=== PATIENT | female | born 1990 | race Caucasian/White ===

== ENCOUNTER 2019-03-22 18:24 | Emergency (ER) | payer MEDICAID ==
[2019-03-22] MEDS ORDERED: HYDROmorphone 1 MG/ML Syringe IM ONE (19:28)
--- NOTE | 2019-03-22 19:32 | EDM.PDOC ---
ED HPI GENERAL MEDICAL PROBLEM - General Chief Complaint: Skin Complaint Stated Complaint: LUMP IN GROIN AREA Time Seen by Provider: 03/22/19 18:42 Source of Information: Reports: Patient, RN Notes Reviewed History Limitations: Reports: No Limitations - History of Present Illness INITIAL COMMENTS - FREE TEXT/NARRATIVE: Patient is a 28-year-old female who presents to the ED for the evaluation of a painful lump in the left groin. The patient notes this has been present for about 2 weeks now. She states that the pain has been increasing. She also feels as if there is pressure to the area. The patient states that the pain worsens with any sort of increase in abdominal pressure where she is squatting down, or if she coughs. The patient notes she was at the doctor that prescribes her psychiatric medications and they thought she could have a possibly inflamed lymph node. The patient became mildly worried about this and comes to the ER for evaluation. The patient states she is not really consistent with her bowel movements either, she has had some constipation for the past 1-1/2 weeks. She is not sure she be . She states she also thinks she has a yeast infection, and she notes that she is on some antibiotics for some abscess teeth for which she is seeing an oral surgeon in 3 weeks. She denies any sort of foul orders coming from her vagina but does note some discharge. She is unsure as to whether or not she can actually have an STD as well. Left Groin Pain Score (Numeric/FACES): 4 - Related Data Allergies Allergy/AdvReac Type Severity Reaction Status Date / Time No Known Allergies Allergy Verified 03/22/19 18:39 Home Meds: Home Meds Buprenorphine [Subutex] 16 mg SL DAILY 03/22/19 [History] Dextroamphetamine/Amphetamine [Adderall] 60 mg PO BID 03/22/19 [History] Past Medical History HEENT History: Reports: Other (See Below) Other HEENT History: Dental Caries Cardiovascular History: Reports: None Respiratory History: Reports: None Gastrointestinal History: Reports: None LACE WINDER History: Reports: None Musculoskeletal History: Reports: None Neurological History: Reports: None Psychiatric History: Reports: ADD, Addiction Endocrine/Metabolic History: Reports: None Hematologic History: Reports: None Immunologic History: Reports: None Oncologic (Cancer) History: Reports: None Dermatologic History: Reports: None - Infectious Disease History Infectious Disease History: Reports: None - Past Surgical History Head Surgeries/Procedures: Reports: None Female Surgical History: Reports: D&C Social & Family History - Tobacco Use Smoking Status *Q: Current Every Day Smoker Years of Tobacco use: 15 Packs/Tins Daily: 0.5 - Caffeine Use Caffeine Use: Reports: None - Recreational Drug Use Recreational Drug Use: No ED ROS GENERAL - Review of Systems Review Of Systems: See Below Constitutional: Reports: No Symptoms HEENT: Reports: No Symptoms Respiratory: Denies: Shortness of Breath Cardiovascular: Denies: Chest Pain Endocrine: Reports: No Symptoms GI/Abdominal: Reports: Constipation, Nausea. Denies: Diarrhea, Vomiting : Reports: Discharge. Denies: Dysuria, Frequency, Urgency Musculoskeletal: Reports: No Symptoms Skin: Reports: Lumps (Left inguinal region) Neurological: Reports: No Symptoms Psychiatric: Reports: No Symptoms Hematologic/Lymphatic: Reports: No Symptoms Immunologic: Reports: No Symptoms ED EXAM, SKIN/RASH Exam: See Below Exam Limited By: No Limitations General Appearance: Alert, WD/WN, No Apparent Distress Eye Exam: Bilateral Eye: EOMI, Normal Inspection, PERRL Respiratory/Chest: No Respiratory Distress, Lungs Clear, Normal Breath Sounds, No Accessory Muscle Use, Chest Non-Tender Cardiovascular: Normal Peripheral Pulses, Regular Rate, Rhythm, No Murmur Peripheral Pulses: 3+: Radial (L), Radial (R), Dorsalis Pedis (L), Dorsalis Pedis (R) GI/Abdominal: Normal Bowel Sounds, Soft, No Distention, No Mass, Tender (lower abdomen tenderness to palpation) (Female) Exam: Deferred (Vaginal swab was obtained per patient after instructions given) Extremities: Normal Inspection, Normal Capillary Refill Neurological: Alert, Oriented, Normal Cognition, No Motor/Sensory Deficits Psychiatric: Normal Affect, Normal Mood Skin: Warm, Dry, Intact, Normal Color, No Rash Location, Skin: Groin (Left inguinal area, this is roughly 3cm x 4 cm) Associated features: No: Warmth Lymphatic: Adenopathy (3cm area in question in Left groin, enlarged lymph node vs femoral hernia.) Course - Vital Signs Last Recorded V/S: Last Vital Signs Temp 98.2 F 03/22/19 18:34 Pulse 93 03/22/19 18:34 Resp 16 03/22/19 18:34 BP 133/81 03/22/19 18:34 Pulse Ox 100 03/22/19 18:34 - Orders/Labs/Meds Labs: Laboratory Tests 03/22/19 03/22/19 03/22/19 Range/Units 19:20 19:20 19:20 WBC 6.07 (3.98-10.04) K/mm3 RBC 4.41 (3.98-5.22) M/mm3 Hgb 12.7 (11.2-15.7) gm/L Hct 36.8 (34.1-44.9) % MCV 83.4 (79.4-94.8) fl MCH 28.8 (25.6-32.2) pg MCHC 34.5 (32.2-35.5) g/dl RDW Std Deviation 36.0 L (36.4-46.3) fL Plt Count 269 (182-369) K/mm3 MPV 8.7 L (9.4-12.3) fl Neutrophils % (Manual) 62 H (40-60) % Band Neutrophils % 0 (0-10) % Lymphocytes % (Manual) 22 (20-40) % Atypical Lymphs % 0 % Monocytes % (Manual) 4 (2-10) % Eosinophils % (Manual) 11 H (0.7-5.8) % Basophils % (Manual) 1 (0.1-1.2) Toxic Granulation Few Platelet Estimate Adequate Plt Morphology Comment Normal RBC Morph Comment Normal Sodium 142 (136-145) mEq/L Potassium 4.0 (3.5-5.1) mEq/L Chloride 106 (98-107) mEq/L Carbon Dioxide 31 (21-32) mEq/L Anion Gap 9.0 (5-15) BUN 14 (7-18) mg/dL Creatinine 0.8 (0.55-1.02) mg/dL Est Cr Clr Drug Dosing 89.96 mL/min Estimated GFR (MDRD) > 60 (>60) mL/min BUN/Creatinine Ratio 17.5 (14-18) Glucose 105 (74-106) mg/dL Calcium 9.0 (8.5-10.1) mg/dL Total Bilirubin 0.3 (0.2-1.0) mg/dL AST 17 (15-37) U/L ALT 31 (14-59) U/L Alkaline Phosphatase 78 (46-116) U/L C-Reactive Protein 0.5 (<1.0) mg/dL Total Protein 7.5 (6.4-8.2) g/dl Albumin 3.6 (3.4-5.0) g/dl Globulin 3.9 gm/dL Albumin/Globulin Ratio 0.9 L (1-2) HCG, Qual Negative (NEGATIVE) Urine Color (Yellow) Urine Appearance (Clear) Urine pH (5.0-8.0) Ur Specific [place] (1.005-1.030) Urine Protein (Negative) Urine Glucose (UA) (Negative) Urine Ketones (Negative) Urine Occult Blood (Negative) Urine Nitrite (Negative) Urine Bilirubin (Negative) Urine Urobilinogen (0.2-1.0) Ur Leukocyte Esterase (Negative) Urine RBC (0-5) /hpf Urine WBC (0-5) /hpf Ur Epithelial Cells (0-5) /hpf Urine Bacteria (FEW) /hpf Urine Mucus (FEW) /hpf C trachomatis DNA (PCR) N gonorrhoeae DNA (PCR) 03/22/19 03/22/19 Range/Units 20:00 20:00 WBC (3.98-10.04) K/mm3 RBC (3.98-5.22) M/mm3 Hgb (11.2-15.7) gm/L Hct (34.1-44.9) % MCV (79.4-94.8) fl MCH (25.6-32.2) pg MCHC (32.2-35.5) g/dl RDW Std Deviation (36.4-46.3) fL Plt Count (182-369) K/mm3 MPV (9.4-12.3) fl Neutrophils % (Manual) (40-60) % Band Neutrophils % (0-10) % Lymphocytes % (Manual) (20-40) % Atypical Lymphs % % Monocytes % (Manual) (2-10) % Eosinophils % (Manual) (0.7-5.8) % Basophils % (Manual) (0.1-1.2) Toxic Granulation Platelet Estimate Plt Morphology Comment RBC Morph Comment Sodium (136-145) mEq/L Potassium (3.5-5.1) mEq/L Chloride (98-107) mEq/L Carbon Dioxide (21-32) mEq/L Anion Gap (5-15) BUN (7-18) mg/dL Creatinine (0.55-1.02) mg/dL Est Cr Clr Drug Dosing mL/min Estimated GFR (MDRD) (>60) mL/min BUN/Creatinine Ratio (14-18) Glucose (74-106) mg/dL Calcium (8.5-10.1) mg/dL Total Bilirubin (0.2-1.0) mg/dL AST (15-37) U/L ALT (14-59) U/L Alkaline Phosphatase (46-116) U/L C-Reactive Protein (<1.0) mg/dL Total Protein (6.4-8.2) g/dl Albumin (3.4-5.0) g/dl Globulin gm/dL Albumin/Globulin Ratio (1-2) HCG, Qual (NEGATIVE) Urine Color Yellow (Yellow) Urine Appearance Clear (Clear) Urine pH 7.0 (5.0-8.0) Ur Specific [place] 1.020 (1.005-1.030) Urine Protein Trace H (Negative) Urine Glucose (UA) Negative (Negative) Urine Ketones Negative (Negative) Urine Occult Blood Negative (Negative) Urine Nitrite Negative (Negative) Urine Bilirubin Negative (Negative) Urine Urobilinogen 1.0 (0.2-1.0) Ur Leukocyte Esterase Negative (Negative) Urine RBC Not seen (0-5) /hpf Urine WBC 0-5 (0-5) /hpf Ur Epithelial Cells 0-5 (0-5) /hpf Urine Bacteria Not seen (FEW) /hpf Urine Mucus Moderate H (FEW) /hpf C trachomatis DNA (PCR) Not detected N gonorrhoeae DNA (PCR) Not detected Meds: Medications Discontinued Medications Generic Name Dose Route Start Last Admin Trade Name Freq PRN Reason Stop Dose Admin Azithromycin 1,000 mg 03/22/19 21:03 03/22/19 21:19 Zithromax PO 03/22/19 21:04 1,000 mg ONETIME ONE Administration Ceftriaxone Sodium 250 mg/ 0 mg 03/22/19 21:03 03/22/19 21:19 Lidocaine HCl 0.5 ml IM 03/22/19 21:04 250 syringe ONETIME ONE Administration Hydromorphone HCl 1 mg 03/22/19 19:28 03/22/19 19:55 Dilaudid IM 03/22/19 19:29 1 mg ONETIME ONE Administration Metronidazole 500 mg 03/22/19 20:35 03/22/19 20:51 Flagyl PO 03/22/19 20:36 500 mg ONETIME ONE Administration - Re-Assessments/Exams Free Text/Narrative Re-Assessment/Exam: 03/22/19 19:36 Patient presents to the ED for the evaluation of these painful lump in her left groin. Did order a CBC, CMP, CRP, urinalysis w/ a dirty catch and a clean catch for GC and other infectious evaluation, a wet prep and an ultrasound of the area to differentiate if this is a lymph node versus hernia in nature. 03/22/19 20:15 Ultrasound is done and demonstrates 3 abnormal lymph nodes within the left groin that are hypoechoic with edematous change as well as being hypervascular. These measure 3.3 cm, 1.7 cm, and 1.4 cm. The lymph nodes are most likely inflammatory in etiology. 03/22/19 21:06 Patient was reassessed at bedside, her vaginal swab did have some clue cells in it which would suggest that she has bacterial vaginosis. I will prophylactically treat her as if she has a gonorrhea chlamydia infection, and she does not want to wait for the results. I will call her when the results are back tonight. 03/22/19 22:22 Results are back for the GC tests and they are negative. I have called the patient and made her aware of the results. Departure - Departure Time of Disposition: 21:07 Disposition: Home, Self-Care 01 Condition: Fair Clinical Impression: Inguinal lymphadenopathy, Bacterial vaginosis - Discharge Information *PRESCRIPTION DRUG MONITORING PROGRAM REVIEWED*: No *COPY OF PRESCRIPTION DRUG MONITORING REPORT IN PATIENT EMILEE: No Instructions: Lymphadenopathy, Bacterial Vaginosis, [id number] Referrals: PCP,None [Primary Care Provider] - Forms: ED Department Discharge Additional Instructions: You were evaluated in the ED today for your painful left groin lump. This demonstrated 3 mildly inflamed lymph nodes which could suggest an infection in this area. Your laboratory evaluation was within normal limits, your white blood cell count was not elevated, and your marker for inflammation was also not elevated. Your vaginal swab did demonstrate some cells that are suspicious for bacterial vaginosis, you have been given a dose of Flagyl in the ER tonight, and will be provided with a prescription for continuation of this. This will be electronically sent to the [facility] pharmacy located by [facility]. Please try to refrain from alcohol use while taking Flagyl as it can make you quite nauseous and feel very ill. You were also prophylactically treated for a gonorrhea/chlamydia infection. Your test results have not been resulted at your departure, you will be called and made notified of the results whether it is positive or negative. If it is positive, recommend that you refrain from sexual intercourse for 7 days , and go to a community clinic like [facility] or [facility] for free STD testing for repeat testing. Recommend that you follow up in clinic if the lump is not decreasing in size in a timely fashion, roughly 1 week's time. You may take 600 mg ibuprofen every 6 hours as needed for further pain relief. Please return to the ED if your symptoms change or worsen.
--- NOTE | 2019-03-22 20:03 | US ---
Left inguinal ultrasound: Multiple real-time images of the left inguinal region were obtained. Findings: 3 abnormal lymph nodes are seen within the left inguinal region which are hypoechoic compatible with edematous change as well as being slightly hypervascular. These lymph nodes measure 3.3 cm, 1.7 cm, and 1.4 cm. Impression: 1. 3 abnormal lymph nodes within the left groin as described above. These lymph nodes are most likely inflammatory in etiology. Please follow-up clinically to make sure they decrease in size as expected. 2. No hernia is identified. Diagnostic code #3
[2019-03-22] MEDS ORDERED: metroNIDAZOLE 500 MG Tab PO ONE (20:35)
[2019-03-22] MEDS ORDERED: Azithromycin 250 MG Tab PO ONE (21:03)
[2019-03-22] MEDS ORDERED: cefTRIAXone 250 MG, Lidocaine 1% 0.5 ML IM ONE ×2 (21:03)
[2019-03-22 22:13] LABS: C. TRACHOMATIS BY PCR NOT DETECTED; N. GONORRHOEAE BY PCR NOT DETECTED
== END 2019-03-22 21:25 | disposition home or self-care (01) ==
LOC: JD.ED 18:24
DX: N76.0 Acute vaginitis (principal); R59.0 Localized enlarged lymph nodes; F17.210 Nicotine dependence, cigarettes, uncomplicated
CPT/HCPCS: 36415; 76881; 80053; 81001; 84703; 85007; 85027; 86140; 87210; 87491; 87591; 87808; 96372; 99284; A9270; J0696; J1170; J2001

== ENCOUNTER 2019-05-17 17:52 | Emergency (ER) | payer SELFPAY ==
[2019-05-17] MEDS ORDERED: Ibuprofen 600 MG Tab PO ONE (19:41)
[2019-05-17] MEDS ORDERED: Orphenadrine 100 MG Tab.ER PO STA (19:41)
--- NOTE | 2019-05-17 19:47 | EDM.PDOC ---
ED HPI GENERAL MEDICAL PROBLEM - General Chief Complaint: Chest Pain Stated Complaint: CHEST PAIN Time Seen by Provider: 05/17/19 18:54 Source of Information: Reports: Patient History Limitations: Reports: No Limitations - History of Present Illness INITIAL COMMENTS - FREE TEXT/NARRATIVE: Ms. Land is a very pleasant 28 year old woman who states that she has had a chest cold for the past 3 days, including chest congestion and a cough productive of brownish sputum. She has not had a fever, but she has been perspiring. She states that she woke this morning with left anterior chest pain. It is dull in character. It is always present, but made worse with inspiration. She denies dyspnea at rest, but she has had dyspnea on exertion since this morning. The patient also reports 3 days of a headache, felt as a sharp pain in her left forehead. No recent sore throat. No recent nausea, vomiting, watery diarrhea, or urinary symptoms. She reports chronic constipation. The patient has not taken any eggt-nro-tejakyj or home remedies to treat her symptoms. The patient is also concerned about having chlamydia, because her ex-boyfriend told her that he has it. The patient does not have a PCP. Her Partnership Manager is Dr. Owen Patrick. She has not received an influenza vaccine this season. Left Chest Pain Score (Numeric/FACES): 7 - Related Data Allergies Allergy/AdvReac Type Severity Reaction Status Date / Time No Known Allergies Allergy Verified 05/17/19 18:00 Home Meds: Home Meds Buprenorphine [Subutex] 16 mg SL DAILY 03/22/19 [History] Dextroamphetamine/Amphetamine [Adderall] 60 mg PO BID 03/22/19 [History] Orphenadrine [Norflex] 1 tab PO Q12H PRN #14 tab.er 05/17/19 [Rx] Past Medical History HEENT History: Reports: Other (See Below) Other HEENT History: Dental Caries Psychiatric History: Reports: ADD, Addiction (opioids) - Past Surgical History Female Surgical History: Reports: D&C (x 1), Other (See Below) (Therapeutic x 1) Social & Family History - Tobacco Use Smoking Status *Q: Current Every Day Smoker Years of Tobacco use: 20 Packs/Tins Daily: 0.5 Packs/Tins Daily Comment: Down from 1.5 ppd - Caffeine Use Caffeine Use: Reports: Tea - Alcohol Use Alcohol Use History: No - Recreational Drug Use Recreational Drug Use: Yes Drug Use in Last 12 Months: Yes Recreational Drug Type: Reports: Marijuana/Hashish (smokes regularly), Other ( see below) (Opioids - developed dependency to Vicodin Rx'd for dental pain, and when that became unavailable, 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 Now on Subtex.) - Living Situation & Occupation Living situation: Reports: Single, with Family (2 kids) Occupation: Unemployed ED ROS GENERAL - Review of Systems Review Of Systems: ROS reveals no pertinent complaints other than HPI. ED EXAM, GENERAL - Physical Exam Exam: See Below Exam Limited By: No Limitations General Appearance: Alert, WD/WN, No Apparent Distress Eye Exam: Bilateral Eye: EOMI, Normal Inspection Ears: Normal External Exam, Normal Canal, Hearing Grossly Normal, Normal TMs Nose: Normal Inspection, Normal Mucosa, No Blood Throat/Mouth: Normal Inspection, Normal Lips, Normal Teeth, Normal Gums, Normal Oropharynx, Normal Voice, No Airway Compromise Head: Atraumatic, Normocephalic Neck: Normal Inspection, Supple, Non-Tender, Full Range of Motion. No: Lymphadenopathy (L), Lymphadenopathy (R) Respiratory/Chest: No Respiratory Distress, Lungs Clear, Normal Breath Sounds, No Accessory Muscle Use, Other (Reproducible tenderness to palpation of the left anterior chest). No: Decreased Breath Sounds, Crackles, Rhonchi, Wheezing , Stridor, Prolonged Expiration Cardiovascular: Normal Peripheral Pulses, Regular Rate, Rhythm, No Edema, No Gallop, No JVD, No Murmur, No Rub Peripheral Pulses: 4+: Radial (L), Radial (R) GI/Abdominal: Normal Bowel Sounds, Soft, Non-Tender, No Organomegaly, No Distention, No Abnormal Bruit, No Mass (Female) Exam: Deferred Rectal (Female) Exam: Deferred Back Exam: Normal Inspection, Full Range of Motion, NT Extremities: Normal Inspection, Normal Range of Motion, No Pedal Edema, Normal Capillary Refill Neurological: Alert, Oriented, Normal Cognition, No Motor/Sensory Deficits Psychiatric: Normal Affect Skin Exam: Warm, Dry, Intact, Normal Color, No Rash Course - Vital Signs Last Recorded V/S: Last Vital Signs Temp 36.8 C 05/17/19 17:57 Pulse 101 H 10/22/19 17:57 Resp 16 05/17/19 17:57 BP 141/90 H 05/17/19 17:57 Pulse Ox 100 05/17/19 17:57 - Orders/Labs/Meds Labs: Laboratory Tests 05/17/19 Range/Units 20:20 C trachomatis DNA (PCR) Detected H N gonorrhoeae DNA (PCR) Not detected Meds: Medications Discontinued Medications Generic Name Dose Route Start Last Admin Trade Name Belkys PRN Reason Stop Dose Admin Azithromycin 1,000 mg 05/17/19 22:49 05/17/19 23:22 Zithromax PO 05/17/19 22:50 1,000 mg ONETIME STA Administration Ceftriaxone Sodium 250 mg 05/17/19 22:49 05/17/19 23:22 Rocephin IM 05/17/19 22:50 250 mg ONETIME STA Administration Ibuprofen 600 mg 05/17/19 19:41 05/17/19 20:11 Motrin PO 05/17/19 19:42 600 mg ONETIME ONE Administration Influenza Virus Vaccine 1 each 05/17/19 19:41 Pharmacy To Dose - Influenza Vaccine IM 05/17/19 19:42 ONETIME ONE Influenza Virus Vaccine 60 mcg 05/17/19 20:00 05/17/19 20:11 Fluzone Quad [id number] Syringe IM 05/17/19 20:01 60 mcg .ONCE ONE Administration Orphenadrine Citrate 100 mg 05/17/19 19:41 05/17/19 20:11 Norflex PO 05/17/19 19:42 100 mg ONETIME STA Administration - Re-Assessments/Exams Free Text/Narrative Re-Assessment/Exam: 05/17/19 19:42 By history, the patient has a viral URI with a cough. Her physical exam is benign, including her lungs, which are entirely clear to auscultation bilaterally. Since there is no history of a fever, and she is afebrile here, I don't clinically suspect influenza. The triage nurse ordered a two-view chest x- ray, which I have reviewed: 2-view chest radiograph appears to be grossly normal. The cardiac silhouette is within normal limits. No pulmonary vascular congestion. No pleural effusions. No focal infiltrate. No pneumothorax. Formal read per the Radiologist pending. I advised the patient that there are no medicines we can give her to get rid of a common cold, and that it will have to run its course. The patient is satisfied with that. With respect to the patient's left-sided chest pain, her physical exam suggests that it is musculoskeletal in etiology, likely because of intercostal muscle spasm related to her coughing. The patient will be started on Norflex and ibuprofen, and I will prescribe a 7-day course of Norflex. With respect to the patient's concern of having chlamydia due to her former boyfriend telling her that he had it, I think it is appropriate to check. The patient will provide a dirty urine sample for a GC/chlamydia, and I will call her if it returns positive. The patient agreed to receive an influenza vaccine prior to discharge. I will refer her to Dr. Pereira for follow-up. 05/17/19 22:46 The patient's chlamydia by PCR has returned positive. The gonorrhea by PCR is negative. I will contact the patient to have her return to the ED for treatment. 05/17/19 22:48 I was able to reach the patient by telephone. She will return to the ED now. When she gets here, we will treat her with 1 g of oral azithromycin and 250 mg of IM Rocephin. 05/17/19 23:46 The patient return to the ED and received 1 g of oral azithromycin and 250 mg of IM Rocephin. I advised her to contact her former boyfriend to recommend that he be evaluated and treated, along with anyone else that he may have been with. Departure - Departure Time of Disposition: 19:47 Disposition: Home, Self-Care 01 Condition: Good Clinical Impression: Viral URI with cough, Intercostal muscle pain - Discharge Information *PRESCRIPTION DRUG MONITORING PROGRAM REVIEWED*: Not Applicable *COPY OF PRESCRIPTION DRUG MONITORING REPORT IN PATIENT EMILEE: Not Applicable Prescriptions: Orphenadrine [Norflex] 1 tab PO Q12H PRN #14 tab.er PRN Reason: Muscle Spasm Instructions: Upper Respiratory Infection, Adult, Danc-[id number], Musculoskeletal Pain Referrals: Karina Pereira MD [Physician] - Forms: ED Department Discharge Additional Instructions: You were seen in the emergency room for left-sided chest pain following 3 days of coughing. You were also concerned about chlamydia. Workup in the ER included a chest x-ray and a GC/Chlamydia test by PCR. Your chest x-ray returned completely normal. You do not have pneumonia. The GC/Chlamydia test takes about 2 hours to complete. You will be notified if it returns positive. Based on your history, physical exam, and chest x-ray results, you are most likely suffering from a viral URI, also known as a common cold. Unfortunately, there are no medicines to treat a common cold - it will have to run its course. We do not recommend that you take [id number] cough or cold remedies, as they have been shown to be of no benefit, but do have side effects Your left chest pain is felt to be due to strain of the muscles in between your ribs. You have been started on the muscle relaxant Norflex. A prescription for Norflex has been sent to the [facility], located in the [employer] store. Take one tablet of Norflex every 12 hours, starting tomorrow morning, 05/18/2019, as prescribed. In addition to Norflex, we recommend that you take [id number] ibuprofen, 2 -3 tablets (400-600 mg) every 8 hours, with food, as needed for discomfort. Follow-up with Dr. Karina Pereira in the clinic, as needed. If any other problems, please do not hesitate to return to the ER. *You receive an influenza vaccine during your ER visit.*
[2019-05-17] MEDS ORDERED: FLU Vacc QS2019-20(6MOS+)/PF 60 MCG/0.5 ML SYRINGE IM ONE (20:00)
[2019-05-17 22:21] LABS: C. TRACHOMATIS BY PCR DETECTED; N. GONORRHOEAE BY PCR NOT DETECTED
[2019-05-17] MEDS ORDERED: Azithromycin 250 MG Tab PO STA (22:49)
[2019-05-17] MEDS ORDERED: cefTRIAXone 250 MG Vial IM STA (22:49)
--- NOTE | 2019-05-19 09:51 | CR ---
Chest: Two views of the chest were obtained. Comparison: No prior chest x-ray. Heart size and mediastinum are normal. Small focal parenchymal density is seen anteriorly on the lateral view. Lungs otherwise are clear. Bony structures are unremarkable. Impression: 1. Small parenchymal density anteriorly within the mid lung noted on the lateral view. Small area of pneumonia is possible. 2. Chest x-ray is otherwise unremarkable. Diagnostic code #3
== END 2019-05-17 20:20 | disposition home or self-care (01) ==
LOC: JD.ED 17:52
DX: J06.9 Acute upper respiratory infection, unspecified (principal); R07.82 Intercostal pain; F98.8 Other specified behavioral and emotional disorders with onset usually occurring in childhood and adolescence; F17.210 Nicotine dependence, cigarettes, uncomplicated; Z20.2 Contact with and (suspected) exposure to infections with a predominantly sexual mode of transmission; Z23 Encounter for immunization; Z79.899 Other long term (current) drug therapy
CPT/HCPCS: 71046; 87491; 87591; 90471; 90686; 99285; A9270; J0696; 99283; G0008

== ENCOUNTER 2019-08-05 17:29 | Emergency (ER) | payer MEDICAID ==
[2019-08-05] MEDS ORDERED: Sodium Chloride 0.9% 10 ML Syringe FLUSH PRN (17:46)
--- NOTE | 2019-08-05 18:09 | EDM.PDOC ---
ED HPI GENERAL MEDICAL PROBLEM - General Chief Complaint: TRUMPET PLAYER Problem Stated Complaint: 8 WEEKS PREG POSSIBLE MISCARRIAGE Time Seen by Provider: 08/05/19 17:45 Source of Information: Reports: Patient, RN Notes Reviewed History Limitations: Reports: No Limitations - History of Present Illness INITIAL COMMENTS - FREE TEXT/NARRATIVE: Patient is a 29-year-old female who presents to the ED for a possible miscarriage. Patient notes she thinks she is around 8 weeks . Her last menstrual period was normal in May, and she had mild amount of spotting in June. Patient states that she took 2 home test this last week that were positive. She notes that last night and through this morning, she had some lower abdominal pelvic/cramping, very mild spotting. She denies any sort of fever or chills, she states that she has been having nausea, she thought she had stomach flu, but after she took a test she now knows that this is probably morning sickness. She states she does not have a regular TRUMPET PLAYER, but our records indicate that she has been seen by Dr. Jeffries in the [facility]. She is a G5, , she states that she has had an elective and one spontaneous . Patient states that a few months back, she did test positive for chlamydia and syphilis as well, however she states she was treated, and was compliant with treatment. She notes that she is not having any dysuria, but she is having some discharge, that is not foul-smelling. Patient notes that she is a recent IV meth user, her last use was last week. Right Abdomen Pain Score (Numeric/FACES): 8 - Related Data Allergies Allergy/AdvReac Type Severity Reaction Status Date / Time sulfamethoxazole Allergy Vomiting Verified 08/05/19 17:44 [From Bactrim] trimethoprim [From Bactrim] Allergy Vomiting Verified 08/05/19 17:44 Home Meds: Home Meds Buprenorphine [Subutex] 16 mg SL DAILY 03/22/19 [History] Dextroamphetamine/Amphetamine [Adderall] 60 mg PO BID 03/22/19 [History] Pnv No.95/Ferrous Fum/Folic AC [ Caplet] 1 each PO DAILY #30 tablet 05/15 [Rx] Past Medical History HEENT History: Reports: Other (See Below) Other HEENT History: Dental Caries TRUMPET PLAYER History: Reports: , Spontaneous (1), Therapeutic (1) : 5 Para: 2 (A2) Psychiatric History: Reports: ADD, Addiction - Infectious Disease History Infectious Disease History: Reports: 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), Other ( See Below) (syphilis positive but treated 05/26/19, gonorrhea/chlamydia, last positive Apr 2019, has been treated, was negative 06/16/19.) - Past Surgical History Female Surgical History: Reports: D&C Social & Family History - Family History Family Medical History: Noncontributory - Tobacco Use Smoking Status *Q: Current Every Day Smoker Years of Tobacco use: 15 Packs/Tins Daily: 1 - Caffeine Use Caffeine Use: Reports: None - Recreational Drug Use Recreational Drug Use: Yes Drug Use in Last 12 Months: Yes Recreational Drug Type: Reports: Methamphetamine (last use 1st week Jul 2019) Recreational Drug Route: Reports: Intravenous - Living Situation & Occupation Living situation: Reports: Single, with Family (2 kids) Occupation: Unemployed ED ROS GENERAL - Review of Systems Review Of Systems: See Below Constitutional: Denies: Fever, Chills Respiratory: Denies: Shortness of Breath Cardiovascular: Denies: Chest Pain GI/Abdominal: Reports: Abdominal Pain (low abd/pelvic cramping), Nausea. Denies : Diarrhea, Vomiting : Reports: Discharge, Other (mild vaginal spotting). Denies: Dysuria, Frequency, Urgency ED EXAM - Physical Exam Exam: See Below Exam Limited By: No Limitations General Appearance: Alert, WD/WN, No Apparent Distress Respiratory/Chest: No Respiratory Distress, Lungs Clear, Normal Breath Sounds, No Accessory Muscle Use, Chest Non-Tender Cardiovascular: Normal Peripheral Pulses, Regular Rate, Rhythm, No Murmur GI/Abdominal Exam: Normal Bowel Sounds, Soft, Non-Tender, No Distention, No Mass Heart Tones: Not [place] Movement: Not Appreciated Extremities: Normal Inspection, Normal Capillary Refill Neurological: Alert, Oriented, Normal Cognition, No Motor/Sensory Deficits Psychiatric: Normal Affect, Normal Mood Skin Exam: Warm, Dry, Intact, Normal Color, No Rash Course - Vital Signs Last Recorded V/S: Last Vital Signs Temp 99.8 F 08/05/19 17:38 Pulse 130 H 08/05/19 17:38 Resp 16 08/05/19 17:38 BP 126/76 08/05/19 17:38 Pulse Ox 100 08/05/19 17:38 - Orders/Labs/Meds Orders: Active Orders 24 hr Category Date Time Status Peripheral IV Care [RC] . DIRECTED Care 08/05/19 17:47 Active Peripheral IV Insertion Adult [OM.PC] Stat Oth 08/05/19 17:46 Ordered Labs: Laboratory Tests 08/05/19 08/05/19 08/05/19 Range/Units 18:05 18:05 18:05 WBC (3.98-10.04) K/mm3 RBC (3.98-5.22) M/mm3 Hgb (11.2-15.7) gm/dl Hct (34.1-44.9) % MCV (79.4-94.8) fl MCH (25.6-32.2) pg MCHC (32.2-35.5) g/dl RDW Std Deviation (36.4-46.3) fL Plt Count (182-369) K/mm3 MPV (9.4-12.3) fl Neut % (Auto) (34.0-71.1) % Lymph % (Auto) (19.3-51.7) % Williams % (Auto) (4.7-12.5) % Eos % (Auto) (0.7-5.8) Baso % (Auto) (0.1-1.2) % Neut # (Auto) (1.56-6.13) K/mm3 Lymph # (Auto) (1.18-3.74) K/mm3 Williams # (Auto) (0.24-0.36) K/mm3 Eos # (Auto) (0.04-0.36) K/mm3 Baso # (Auto) (0.01-0.08) K/mm3 HCG, Quant mIU/mL Urine Color Yellow (Yellow) Urine Appearance Clear (Clear) Urine pH 7.0 (5.0-8.0) Ur Specific [place] > or = 1.030 (1.005-1.030) Urine Protein Negative (Negative) Urine Glucose (UA) Negative (Negative) Urine Ketones Negative (Negative) Urine Occult Blood Negative (Negative) Urine Nitrite Negative (Negative) Urine Bilirubin Negative (Negative) Urine Urobilinogen 0.2 (0.2-1.0) Ur Leukocyte Esterase Negative (Negative) Urine RBC 0-5 (0-5) /hpf Urine WBC 0-5 (0-5) /hpf Ur Squamous Epith Cells 5-10 H (0-5) /hpf Urine Bacteria Few (FEW) /hpf Urine Mucus Few (FEW) /hpf Urine HCG, Qual Positive (NEGATIVE) C trachomatis DNA (PCR) Not detected N gonorrhoeae DNA (PCR) Not detected Blood Type Gel Antibody Screen 08/05/19 08/05/19 08/05/19 Range/Units 18:54 19:09 19:09 WBC 6.25 (3.98-10.04) K/mm3 RBC 5.08 (3.98-5.22) M/mm3 Hgb 14.1 (11.2-15.7) gm/dl Hct 40.9 (34.1-44.9) % MCV 80.5 (79.4-94.8) fl MCH 27.8 (25.6-32.2) pg MCHC 34.5 (32.2-35.5) g/dl RDW Std Deviation 38.5 (36.4-46.3) fL Plt Count 211 (182-369) K/mm3 MPV 8.7 L (9.4-12.3) fl Neut % (Auto) 38.7 (34.0-71.1) % Lymph % (Auto) 46.4 (19.3-51.7) % Williams % (Auto) 8.8 (4.7-12.5) % Eos % (Auto) 5.1 (0.7-5.8) Baso % (Auto) 0.8 (0.1-1.2) % Neut # (Auto) 2.42 (1.56-6.13) K/mm3 Lymph # (Auto) 2.90 (1.18-3.74) K/mm3 Williams # (Auto) 0.55 H (0.24-0.36) K/mm3 Eos # (Auto) 0.32 (0.04-0.36) K/mm3 Baso # (Auto) 0.05 (0.01-0.08) K/mm3 HCG, Quant 8970.0 mIU/mL Urine Color (Yellow) Urine Appearance (Clear) Urine pH (5.0-8.0) Ur Specific [place] (1.005-1.030) Urine Protein (Negative) Urine Glucose (UA) (Negative) Urine Ketones (Negative) Urine Occult Blood (Negative) Urine Nitrite (Negative) Urine Bilirubin (Negative) Urine Urobilinogen (0.2-1.0) Ur Leukocyte Esterase (Negative) Urine RBC (0-5) /hpf Urine WBC (0-5) /hpf Ur Squamous Epith Cells (0-5) /hpf Urine Bacteria (FEW) /hpf Urine Mucus (FEW) /hpf Urine HCG, Qual (NEGATIVE) C trachomatis DNA (PCR) N gonorrhoeae DNA (PCR) Blood Type A POSITIVE Gel Antibody Screen Negative Meds: Medications Discontinued Medications Generic Name Dose Route Start Last Admin Trade Name Freq PRN Reason Stop Dose Admin Sodium Chloride 10 ml 08/05/19 17:46 08/05/19 18:10 Saline Flush FLUSH 10 ml ASDIRECTED PRN Administration Keep Vein Open - Re-Assessments/Exams Free Text/Narrative Re-Assessment/Exam: 08/05/19 18:15 Patient presents to the ED for the evaluation of being possibly 8 weeks and thinking she has a miscarriage. Did order IV to be placed with some labs to include a CBC, type and screen, hCG quantitative and qualitative, urinalysis, a transvaginal US, and I will repeat the gonorrhea/chlamydia screen as she states she is having some discharge as well. As she has tested positive for syphilis in the past by RPR being reactive, I did discuss this with Dr. Teague, and he states that she was compliant with her treatment, for which she states she was, there is no benefit to retesting, as once she is positive, it should stay positive as she has had contact with that particular bacterium. He does not know of any specific test for confirmation for reinfection at this time unless she begins to be symptomatic again. 08/05/19 19:15 Labs are still pending, ultrasound is back and read as follows. Possible gestational sac within the endometrial cavity measuring 0.59 cm, there appears to be a gestational reaction around the cystic area, which could result present very early although normal would need to be confirmed on follow-up study. Right maternal ovary shows a small solid-appearing finding measuring 2.3 cm. No additional abnormality is seen. Radiologist recommends follow-up study within 11 to 14 days. Urinalysis demonstrates no acute bacterial infection. 08/05/19 20:31 Patient's type and screen and hCG are still pending at this time. Patient is stating that her attorney general is getting anxious, and needs to leave so she was wanting to be discharged before labs were done. At this time I do not see any sort indication for where she cannot be discharged. I did call Dr. Patrick on her behalf, and discussed her case with him. He states that repeating the ultrasound in around 14 days is a fair plan, and he states to have hCG quantitative levels done on August 08, , , and . The ultrasound will need to be done before the patient sees Dr. Jeffries, he suggested scheduling the patient for August 22, unfortunately it is after hours and I am not able to facilitate scheduling this appointment. I will give the patient the doctor's number and have her follow-up on Thursday. Departure - Departure Time of Disposition: 20:33 Disposition: Home, Self-Care 01 Condition: Fair Clinical Impression: Qualifiers: Weeks of gestation: less than 8 weeks Qualified Code(s): Z3A.01 - Less than 8 weeks gestation of - Discharge Information *PRESCRIPTION DRUG MONITORING PROGRAM REVIEWED*: No *COPY OF PRESCRIPTION DRUG MONITORING REPORT IN PATIENT EMILEE: No Prescriptions: Pnv No.95/Ferrous Fum/Folic AC [ Caplet] 1 each PO DAILY #30 tablet Instructions: First Trimester of , [id number] Referrals: Annetta Owens NP [Primary Care Provider] - Marc Jeffries MD [Physician] - 2 Weeks Forms: ED Department Discharge Additional Instructions: You were evaluated in the ER today regarding your abdominal pain/vaginal bleeding in . You did have some labs drawn, and these were within normal limits, your hCG level is still pending at this time, your blood type is still pending at this time. If your blood type is Rh-, you may need a RhoGam injection for further management of this . You will be called and made notified of this if your blood type is Rh-. Your ultrasound demonstrated a cystic area within the endometrial cavity, which could represent a very early with no established pole or yolk sac. The radiologist recommends a repeat ultrasound in around 11 to 14 days, I did discuss her case with her TRUMPET PLAYER on-call, and he recommends having quantitative levels done every Thursday and for the next 2 weeks, until you are reevaluated by an TRUMPET PLAYER, he notes since you have been following with Dr. Jeffries regarding your STI treatment, that you should follow-up with him for your OB management. He suggested scheduling an appointment for around August 22. You will need to have a repeat ultrasound before that appointment as well. You were given outpatient orders for both of these lab tests and ultrasound. [facility] to schedule you the ultrasound. You should show up to the lab on August 08, August 11, August 15, August 18, and August 22 for repeat quantitative hCG. Please call our [facility], and schedule an appointment with Dr. Marc Jeffries for around August 22 for recheck of your . He should have the results of these lab draws and ultrasound by that time. Recommend that you do not lift anything heavier than a gallon of milk (5 lbs), do not engage in sexual activities, try to get as much pelvic rest as possible for the next few days. Please try not to exert yourself, rest and relax, and take it easy. If you are bleeding through more than 1-2 maxi pads every couple hours, this would be cause for concern to return to the ER for immediate management. Please return to the ED at any time if your symptoms change or worsen. Sepsis Event Note - Evaluation Sepsis Screening Result: No Definite Risk - Focused Exam Date Exam was Performed: 08/06/19 Time Exam was Performed: 11:51 - My Orders Last 24 Hours: My Active Orders 08/05/19 17:46 Peripheral IV Insertion Adult [OM.PC] Stat 08/05/19 17:47 Peripheral IV Care [RC] . DIRECTED - Assessment/Plan Last 24 Hours: My Active Orders 08/05/19 17:46 Peripheral IV Insertion Adult [OM.PC] Stat 08/05/19 17:47 Peripheral IV Care [RC] . DIRECTED
--- NOTE | 2019-08-05 19:01 | US ---
1st trimester obstetrical ultrasound: Multiple real-time images were obtained transvaginally. Comparison: No previous study for current . Very small cystic area is noted within the endometrial cavity. There appears to be a gestational reaction around this cystic area. Findings could represent very early although normal would need to be confirmed on follow-up study. Left maternal ovary is normal. Right maternal ovary shows a small solid-appearing finding measuring 2.3 cm. No additional abnormality is noted. Measurements: Possible gestational sac: 0.59 cm Impression: 1. Small cystic area within the endometrial cavity. This could represent very early with no pole or yolk sac seen at this time. Follow-up study could be considered 11-14 days. 2. Solid appearing finding within the maternal right ovary measuring 2.3 cm. This can be reevaluated at time of follow-up study. 3. No additional abnormality is seen. Diagnostic code #3 This report was dictated in Mountain Standard Time
[2019-08-05 22:54] LABS: C. TRACHOMATIS BY PCR NOT DETECTED; N. GONORRHOEAE BY PCR NOT DETECTED
== END 2019-08-05 20:46 | disposition home or self-care (01) ==
LOC: JD.ED 17:29
DX: O26.851 Spotting complicating pregnancy, first trimester (principal); O26.891 Other specified pregnancy related conditions, first trimester; R10.2 Pelvic and perineal pain; O99.331 Smoking (tobacco) complicating pregnancy, first trimester; F17.210 Nicotine dependence, cigarettes, uncomplicated; Z3A.01 Less than 8 weeks gestation of pregnancy; Z88.2 Allergy status to sulfonamides
CPT/HCPCS: 36415; 76817; 76817-26; 81001; 81025; 84702; 85025; 86850; 86900; 86901; 87491; 87591; 99283; 99284-25

== ENCOUNTER 2019-08-17 20:43 | Emergency (ER) | payer MEDICAID ==
[2019-08-17] MEDS ORDERED: Lidocaine 2% Viscous Solution 15 ML Cup ONE (21:03)
--- NOTE | 2019-08-17 21:05 | EDM.PDOC ---
ED HPI GENERAL MEDICAL PROBLEM - General Chief Complaint: ENT Problem Stated Complaint: RIGHT EAR PAIN Time Seen by Provider: 08/17/19 20:56 Source of Information: Reports: Patient History Limitations: Reports: No Limitations - History of Present Illness INITIAL COMMENTS - FREE TEXT/NARRATIVE: Patient is an unfortunate 29-year-old female who presents emergency Department today with complaint of right ear pain. Patient reports she was in her normal state of health until yesterday when she started having pain to her right ear. The pain is progressively worse and so she presented emergency Department today for evaluation. Patient reports that the pain is worse with palpation or movement, nothing makes the pain better, pain is an achy throbbing type pain. Patient is on Suboxone at home for opioid addiction, her LMP was 06/2019 and she is a A2 who was estimated dates are 5 weeks 6 days him a patient denies any vaginal discharge no vaginal bleeding no pelvic pain no pelvic cramping Right Ear Pain Score (Numeric/FACES): 7 - Related Data Allergies Allergy/AdvReac Type Severity Reaction Status Date / Time sulfamethoxazole Allergy Vomiting Verified 08/17/19 20:58 [From Bactrim] trimethoprim [From Bactrim] Allergy Vomiting Verified 08/17/19 20:58 Home Meds: Home Meds Buprenorphine [Subutex] 16 mg SL DAILY 03/22/19 [History] Pnv No.95/Ferrous Fum/Folic AC [ Caplet] 1 each PO DAILY #30 tablet 05/15 [Rx] Amoxicillin/Clavulanate K [Augmentin 875-125 MG] 1 tab PO BID #14 tab 08/17/19 [ Rx] Past Medical History HEENT History: Reports: Otitis Media, Other (See Below) Other HEENT History: Dental Caries Cardiovascular History: Reports: None Respiratory History: Reports: None Gastrointestinal History: Reports: None [employer] History: Reports: , Spontaneous , Therapeutic Musculoskeletal History: Reports: None Neurological History: Reports: None Psychiatric History: Reports: ADD, Addiction Endocrine/Metabolic History: Reports: None Hematologic History: Reports: None Immunologic History: Reports: None Oncologic (Cancer) History: Reports: None Dermatologic History: Reports: None Other Dermatologic History: Bump in groin area "swollen lymph nodes." - Infectious Disease History Infectious Disease History: Reports: Herpes, Other (See Below) - Past Surgical History Head Surgeries/Procedures: Reports: None Female Surgical History: Reports: D&C Social & Family History - Family History Family Medical History: Noncontributory - Tobacco Use Smoking Status *Q: Current Every Day Smoker Years of Tobacco use: 15 Packs/Tins Daily: 1 - Caffeine Use Caffeine Use: Reports: None - Recreational Drug Use Recreational Drug Use: No - Living Situation & Occupation Living situation: Reports: Single, with Family (2 kids) Occupation: Unemployed ED ROS ENT - Review of Systems Review Of Systems: See Below Constitutional: Denies: Fever, Chills HEENT: Reports: Ear Pain ED EXAM, ENT - Physical Exam Exam: See Below Exam Limited By: No Limitations General Appearance: Alert, WD/WN, Mild Distress Ears: TM Bulging, TM Dullness, TM Erythema (right) Mouth/Throat: Other (Diffuse caries multiple missing teeth) Head: Atraumatic, Normocephalic Neck: Normal Inspection, Supple, Non-Tender, Full Range of Motion Respiratory/Chest: No Respiratory Distress, Lungs Clear, Normal Breath Sounds, No Accessory Muscle Use, Chest Non-Tender Cardiovascular: Normal Peripheral Pulses, Regular Rate, Rhythm, No Edema, No Gallop, No JVD, No Murmur, No Rub GI/Abdominal: Normal Bowel Sounds, Soft, Non-Tender, No Organomegaly, No Distention, No Abnormal Bruit, No Mass Extremities: Normal Inspection, Normal Range of Motion, Non-Tender, No Pedal Edema, Normal Capillary Refill Neurological: Alert Skin: Warm, Dry Course - Vital Signs Last Recorded V/S: Last Vital Signs Temp 99.1 F 08/17/19 20:55 Pulse 92 08/17/19 20:55 Resp 16 08/17/19 20:55 BP 140/85 08/17/19 20:55 Pulse Ox 100 08/17/19 20:55 - Orders/Labs/Meds Meds: Medications Discontinued Medications Generic Name Dose Route Start Last Admin Trade Name Freq PRN Reason Stop Dose Admin Lidocaine HCl 5 ml 08/17/19 21:03 Xylocaine 2% Viscous .XX 08/17/19 21:04 ONETIME ONE Departure - Departure Time of Disposition: 21:06 Disposition: Home, Self-Care 01 Condition: Good Clinical Impression: Otitis media Qualifiers: Otitis media type: suppurative Chronicity: acute Laterality: right Recurrence: not specified as recurrent Spontaneous tympanic membrane rupture: without spontaneous rupture Qualified Code(s): H66.001 - Acute suppurative otitis media without spontaneous rupture of ear drum, right ear - Discharge Information Prescriptions: Amoxicillin/Clavulanate K [Augmentin 875-125 MG] 1 tab PO BID #14 tab Referrals: PCP,None [Primary Care Provider] - Forms: ED Department Discharge Additional Instructions: Home, rest, adequate fluids, return as needed for worsening condition, Tylenol as needed for pain Sepsis Event Note - Evaluation Sepsis Screening Result: No Definite Risk - Focused Exam Vital Signs: Vital Signs Temp Pulse Resp BP Pulse Ox 08/17/19 20:55 99.1 F 92 16 140/85 100 Date Exam was Performed: 08/17/19 Time Exam was Performed: 21:05
== END 2019-08-17 21:29 | disposition home or self-care (01) ==
LOC: JD.ED 20:43
DX: O99.89 Other specified diseases and conditions complicating pregnancy, childbirth and the puerperium (principal); H66.001 Acute suppurative otitis media without spontaneous rupture of ear drum, right ear; O99.331 Smoking (tobacco) complicating pregnancy, first trimester; F17.210 Nicotine dependence, cigarettes, uncomplicated; O99.611 Diseases of the digestive system complicating pregnancy, first trimester; K02.9 Dental caries, unspecified; Z3A.01 Less than 8 weeks gestation of pregnancy; Z88.2 Allergy status to sulfonamides
CPT/HCPCS: 99282; A9270

== ENCOUNTER 2019-08-19 08:01 | Emergency (ER) | payer MEDICAID ==
--- NOTE | 2019-08-19 08:36 | EDM.PDOC ---
ED HPI GENERAL MEDICAL PROBLEM - General Chief Complaint: ENT Problem Stated Complaint: RT EAR PAIN NOT BETTER Time Seen by Provider: 08/19/19 08:28 Source of Information: Reports: Patient History Limitations: Reports: No Limitations - History of Present Illness INITIAL COMMENTS - FREE TEXT/NARRATIVE: 29-year-old female presents once again to the ED with complaints of severe right ear pain. She reports is extremely tender to even touch her ear and she can't lie on this side. Diego throbbing and kept her awake all last night. Thepatient is on Suboxone which she reports she's been off of it for the last 2 days and doesn't appear to be experience any significant withdrawal. She has also been placed on Augmentin 875 mg/125 mg tablets twice a day 2 days ago for right otitis media. She has not appreciated any drainage from the ear. Very painful to try and chew on the right side. Onset: Gradual Onset Date: 08/15/19 Duration: Day(s):, Getting Worse Location: Reports: Face (Right ear pain) Quality: Reports: Ache, Throbbing, Other Severity: Severe (Intermittently sharp and stabbing) Improves with: Reports: None Worsens with: Reports: Other (Trying to eat or chew on that side) Context: Reports: Other. Denies: Activity ( is sore to touch the right ear and she cannot lay on that side to sleep), Exercise, Lifting, Sick Contact, Trauma Associated Symptoms: Reports: Loss of Appetite, Malaise. 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: Other (see below) (None at present.) Right Ear Pain Score (Numeric/FACES): 8 - Related Data Allergies Allergy/AdvReac Type Severity Reaction Status Date / Time sulfamethoxazole Allergy Vomiting Verified 08/19/19 08:13 [From Bactrim] trimethoprim [From Bactrim] Allergy Vomiting Verified 08/19/19 08:13 Home Meds: Home Meds Buprenorphine [Subutex] 16 mg SL DAILY 03/22/19 [History] Pnv No.95/Ferrous Fum/Folic AC [ Caplet] 1 each PO DAILY #30 tablet 05/15 [Rx] Amoxicillin/Clavulanate K [Augmentin 875-125 MG] 1 tab PO BID #14 tab 08/17/19 [ Rx] Acetaminophen with Codeine [Tylenol with Codeine #3 Tablet] 1 - 2 each PO Q4H PRN #16 tablet 08/19/19 [Rx] Hydrocort/Neomycin/Polymyxin B [Dpofmuzh-Vmrluyent-YP Otic Susp] 10 ml EARRT ASDIRECTED #1 bottle 08/19/19 [Rx] dexAMETHasone [Dexamethasone] 4 mg PO Q8H #9 tab 08/19/19 [Rx] Past Medical History HEENT History: Reports: Otitis Media, Other (See Below) Other HEENT History: Dental Caries Cardiovascular History: Reports: None Respiratory History: Reports: None Gastrointestinal History: Reports: None 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: , 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 , Therapeutic Musculoskeletal History: Reports: None Neurological History: Reports: None Psychiatric History: Reports: ADD, Addiction Endocrine/Metabolic History: Reports: None Hematologic History: Reports: None Immunologic History: Reports: None Oncologic (Cancer) History: Reports: None Dermatologic History: Reports: None Other Dermatologic History: Bump in groin area "swollen lymph nodes." - Infectious Disease History Infectious Disease History: Reports: Herpes, Other (See Below) - Past Surgical History Head Surgeries/Procedures: Reports: None Female Surgical History: Reports: D&C Social & Family History - Family History Family Medical History: Noncontributory - Tobacco Use Smoking Status *Q: Current Every Day Smoker Years of Tobacco use: 15 Packs/Tins Daily: 1 - Caffeine Use Caffeine Use: Reports: None - Recreational Drug Use Recreational Drug Use: Yes Drug Use in Last 12 Months: No Recreational Drug Type: Reports: Other (see below) Other Recreational Drug Type: opiods - Living Situation & Occupation Living situation: Reports: Single, with Family (2 kids) Occupation: Unemployed ED ROS ENT - Review of Systems Review Of Systems: See Below Constitutional: Reports: Malaise, Fatigue, Decreased Appetite (Both from and not sleeping.). Denies: Fever, Chills HEENT: Reports: Ear Pain (Severe right ear pain can't even touch her ear pinna without making the pain much worse.) Respiratory: Reports: No Symptoms Cardiovascular: Reports: No Symptoms Endocrine: Reports: Fatigue GI/Abdominal: Reports: Decreased Appetite, Nausea. Denies: Vomiting (Mild.) : Reports: Frequency Musculoskeletal: Reports: No Symptoms Skin: Reports: No Symptoms Neurological: Reports: No Symptoms Psychiatric: Reports: Other Hematologic/Lymphatic: Denies: No Symptoms (Addiction problems) Immunologic: Denies: No Symptoms ED EXAM, ENT - Physical Exam Exam: See Below Exam Limited By: No Limitations General Appearance: Alert, WD/WN, Moderate Distress Eye Exam: Bilateral Eye: Normal Inspection, PERRL Ears: Auricular Tenderness (Severe in the right side), Mastoid Tenderness (Mild) , Canal Swelling, TM Erythema, Other (Hearing is muffled.). No: Normal External Exam, Normal Canal, Hearing Grossly Normal Mouth/Throat: Normal Inspection Head: Atraumatic, Normocephalic Course - Vital Signs Last Recorded V/S: Last Vital Signs Temp 36.9 C 08/19/19 08:09 Pulse 98 08/19/19 08:09 Resp 18 08/19/19 08:09 BP 122/84 08/19/19 08:09 Pulse Ox 100 08/19/19 08:09 - Radiology Interpretation Free Text/Narrative:: 29-year-old female presents to the ED with worsening right ear pain in spite of being on antibiotic therapy for 48 hours. She is currently on Augmentin 875 mg/ 125 mg for right otitis media. Reports that her right ear is exquisitely tender to touch and she can't lay to sleep on the side. Was up all night last night due to pain. She went off her Suboxone 3 days ago. No significant withdrawal. She is approximately 6 weeks gestation. On examination she has an acute right otitis externa with exquisite tenderness of the entire ear pinna with movement. She be placed on Cortisporin optic drops 2 drops to the right ear every 3 hours for 2 days and then to use 2 drops 4 times daily for 7 days. Also placed on oral dexamethasone 4 mg 3 times a day for 3 days to help further help reduce pain and inflammation. Did prescribe Tylenol No. 3 tablets 2 tablets every 4 hours necessary for pain relief 16 tablets. Departure - Departure Time of Disposition: 08:28 Disposition: Home, Self-Care 01 Condition: Fair Clinical Impression: Otitis externa Qualifiers: Otitis externa type: unspecified type Chronicity: acute Laterality: right Qualified Code(s): H60.501 - Unspecified acute noninfective otitis externa, right ear - Discharge Information *PRESCRIPTION DRUG MONITORING PROGRAM REVIEWED*: No *COPY OF PRESCRIPTION DRUG MONITORING REPORT IN PATIENT EMILEE: No Prescriptions: Acetaminophen with Codeine [Tylenol with Codeine #3 Tablet] 1 - 2 each PO Q4H PRN #16 tablet PRN Reason: otitis external pain relief dexAMETHasone [Dexamethasone] 4 mg PO Q8H #9 tab Hydrocort/Neomycin/Polymyxin B [Nownbxvb-Inndyeklw-FD Otic Susp] 10 ml EARRT ASDIRECTED #1 bottle Referrals: Nora Hernandez PA-C [Primary Care Provider] - Forms: ED Department Discharge Additional Instructions: Examination the emergency room today reveals increased right ear pain in spite of being on Augmentin antibiotic for the last 2 days. Associated at 5- 6 weeks gestation and the use of Suboxone for pain management. As you indicated you not taken this for the last couple of days. On examination you have a marked infection involving the right ear canal and I believe there still infection in the eardrum as well. Eardrum was very poorly visualized however. At this point in time continue your Augmentin and antibiotic twice daily until done. No medication is to be Cortisporin otic drops--2-3 drops to the right ear every 3 hours for 2 days then 2 drops every 6 hours for 7 days. Use oral dexamethasone 4 mg by mouth 3 times daily for the next 3 days to further reduce pain and inflammation. Tylenol #3 tabs one or 2 every 4-6 hours as needed for pain relief. Note she should expect marked improvement 80% reduction in pain over the next 48-72 hours. You must remain off her Suboxone until you're finished with the Tylenol No. 3 tablets. Try to avoid getting any water near here at all during showering. Suggest placing cotton bed in your ear canal keep the water out of it during the shower and remove it immediately after getting out of the shower for the next 3 weeks. Sepsis Event Note - Evaluation Sepsis Screening Result: No Definite Risk - Focused Exam Vital Signs: Vital Signs Temp Pulse Resp BP Pulse Ox 08/19/19 08:09 36.9 C 98 18 122/84 100 Date Exam was Performed: 08/19/19 Time Exam was Performed: 08:40
== END 2019-08-19 08:55 | disposition home or self-care (01) ==
LOC: JD.ED 08:01
DX: H60.501 Unspecified acute noninfective otitis externa, right ear (principal); F17.210 Nicotine dependence, cigarettes, uncomplicated; Z88.1 Allergy status to other antibiotic agents
CPT/HCPCS: 99282

== ENCOUNTER 2019-08-20 01:10 | Emergency (ER) | payer MEDICAID ==
--- NOTE | 2019-08-20 01:58 | EDM.PDOC ---
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 This evening when she went to the bathroom about 30 minutes prior to coming to the ER she noted some blood and some clots in the toilet that seem to come from her vagina. She is approximately 6 weeks and she says her last menstrual period was July 08, 2019. She is a 5 para 2 aborta of 2. She is not having significant cramping of her abdomen just some soreness but she comes to the ER because she thinks she is having a miscarriage. She denies any other acute symptoms. She has had no care thus far. She denies any recent illnesses colds coughs fevers or chills. Abdominal Pain Score (Numeric/FACES): 4 - Related Data Allergies Allergy/AdvReac Type Severity Reaction Status Date / Time sulfamethoxazole Allergy Vomiting Verified 08/20/19 01:17 [From Bactrim] trimethoprim [From Bactrim] Allergy Vomiting Verified 08/20/19 01:17 Home Meds: Home Meds Buprenorphine [Subutex] 16 mg SL DAILY 03/22/19 [History] Pnv No.95/Ferrous Fum/Folic AC [ Caplet] 1 each PO DAILY #30 tablet 05/15 [Rx] Amoxicillin/Clavulanate K [Augmentin 875-125 MG] 1 tab PO BID #14 tab 08/17/19 [ Rx] Acetaminophen with Codeine [Tylenol with Codeine #3 Tablet] 1 - 2 each PO Q4H PRN #16 tablet 08/19/19 [Rx] Hydrocort/Neomycin/Polymyxin B [Ewnmmiff-Dytsurjlj-SD Otic Susp] 10 ml EARRT ASDIRECTED #1 bottle 08/19/19 [Rx] dexAMETHasone [Dexamethasone] 4 mg PO Q8H #9 tab 08/19/19 [Rx] Past Medical History HEENT History: Reports: Otitis Media, Other (See Below) Other HEENT History: Dental Caries Cardiovascular History: Reports: None Respiratory History: Reports: None Gastrointestinal History: Reports: None 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: , 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 , 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 Musculoskeletal History: Reports: None Neurological History: Reports: None Psychiatric History: Reports: ADD, Addiction Endocrine/Metabolic History: Reports: None Hematologic History: Reports: None Immunologic History: Reports: None Oncologic (Cancer) History: Reports: None Dermatologic History: Reports: None Other Dermatologic History: Bump in groin area "swollen lymph nodes." - Infectious Disease History Infectious Disease History: Reports: Herpes, Other (See Below) - Past Surgical History Head Surgeries/Procedures: Reports: None Female Surgical History: Reports: D&C Social & Family History - Family History Family Medical History: Noncontributory - Tobacco Use Smoking Status *Q: Current Every Day Smoker Years of Tobacco use: 15 Packs/Tins Daily: 0.5 - Caffeine Use Caffeine Use: Reports: None - Recreational Drug Use Recreational Drug Use: No - Living Situation & Occupation Living situation: Reports: Single, with Family (2 kids) Occupation: Unemployed ED ROS GENERAL - Review of Systems Review Of Systems: See Below Constitutional: Denies: Fever, Chills HEENT: Reports: No Symptoms Respiratory: Denies: Shortness of Breath, Cough Cardiovascular: Reports: No Symptoms Endocrine: Reports: No Symptoms GI/Abdominal: Reports: Abdominal Pain, Nausea. Denies: Constipation, Diarrhea, Vomiting : Reports: Discharge, Other (Vaginal bleeding) Musculoskeletal: Reports: No Symptoms Skin: Reports: No Symptoms Neurological: Reports: No Symptoms Psychiatric: Reports: No Symptoms Hematologic/Lymphatic: Reports: No Symptoms ED EXAM - Physical Exam Exam: See Below Exam Limited By: No Limitations General Appearance: Alert, WD/WN, No Apparent Distress Eye Exam: Bilateral Eye: Normal Inspection Ears: Normal External Exam Nose: Normal Inspection Throat/Mouth: Normal Inspection, Normal Lips, Normal Voice, No Airway Compromise Head: Normocephalic Neck: Supple Respiratory/Chest: No Respiratory Distress, Lungs Clear, Normal Breath Sounds Cardiovascular: Regular Rate, Rhythm, No Murmur GI/Abdominal Exam: Soft, Other (Mild soreness in the suprapubic area, no other abdominal soreness, no rebound no peritoneal symptoms) Back Exam: Normal Inspection, Full Range of Motion Extremities: Normal Inspection, Normal Range of Motion Neurological: Alert, Oriented Psychiatric: Normal Affect, Normal Mood Skin Exam: Warm, Dry Course - Vital Signs Last Recorded V/S: Last Vital Signs Temp 97.7 F 08/20/19 01:16 Pulse 123 H 08/20/19 01:16 Resp 15 08/20/19 01:16 BP 138/92 H 08/20/19 01:16 Pulse Ox 100 08/20/19 01:16 - Orders/Labs/Meds Orders: Active Orders 24 hr Category Date Time Status OB Transvaginal [US] Stat Exams 08/20/19 01:33 Taken Labs: Laboratory Tests 08/20/19 08/20/19 08/20/19 Range/Units 01:24 01:58 01:58 WBC 5.47 (3.98-10.04) K/mm3 RBC 4.87 (3.98-5.22) M/mm3 Hgb 13.4 (11.2-15.7) gm/dl Hct 39.0 (34.1-44.9) % MCV 80.1 (79.4-94.8) fl MCH 27.5 (25.6-32.2) pg MCHC 34.4 (32.2-35.5) g/dl RDW Std Deviation 36.6 (36.4-46.3) fL Plt Count 283 (182-369) K/mm3 MPV 8.6 L (9.4-12.3) fl Neut % (Auto) 84.8 H (34.0-71.1) % Lymph % (Auto) 13.5 L (19.3-51.7) % [place] % (Auto) 1.3 L (4.7-12.5) % Eos % (Auto) 0 L (0.7-5.8) Baso % (Auto) 0.2 (0.1-1.2) % Neut # (Auto) 4.64 (1.56-6.13) K/mm3 Lymph # (Auto) 0.74 L (1.18-3.74) K/mm3 [place] # (Auto) 0.07 L (0.24-0.36) K/mm3 Eos # (Auto) 0.00 L (0.04-0.36) K/mm3 Baso # (Auto) 0.01 (0.01-0.08) K/mm3 HCG, Quant 4488.0 mIU/mL Urine Color Yellow (Yellow) Urine Appearance Clear (Clear) Urine pH 7.0 (5.0-8.0) Ur Specific [place] > or = 1.030 (1.005-1.030) Urine Protein 3+ H (Negative) Urine Glucose (UA) Negative (Negative) Urine Ketones Negative (Negative) Urine Occult Blood 1+ H (Negative) Urine Nitrite Negative (Negative) Urine Bilirubin Negative (Negative) Urine Urobilinogen 0.2 (0.2-1.0) Ur Leukocyte Esterase Negative (Negative) Urine RBC 10-20 H (0-5) /hpf Urine WBC 0-5 (0-5) /hpf Ur Squamous Epith Cells 5-10 H (0-5) /hpf Urine Bacteria Rare (FEW) /hpf Urine Mucus Not seen (FEW) /hpf - Radiology Interpretation Free Text/Narrative:: Ultrasound showed an intrauterine sac about 5 weeks gestation no pole or yolk sac is seen at this time a small subchorionic hematoma noted but no other acute problems. - Re-Assessments/Exams Free Text/Narrative Re-Assessment/Exam: 08/20/19 03:49 I spoke to the patient regarding the ultrasound results and the beta-hCG results. Fingers crossed the baby is okay but she needs to see Dr. Jeffries on Thursday for redraw of the beta-hCG and that will be the true indicator if the baby is doing fine or if she is going to have a miscarriage. Explained that if the beta-hCG is higher on Thursday than it is today and the baby is alive and if it is lower than it is today and the baby is going to be miscarried. Departure - Departure Time of Disposition: 03:50 Disposition: Home, Self-Care 01 Condition: Good Clinical Impression: Intrauterine , Vaginal bleeding - Discharge Information *PRESCRIPTION DRUG MONITORING PROGRAM REVIEWED*: Not Applicable *COPY OF PRESCRIPTION DRUG MONITORING REPORT IN PATIENT EMILEE: Not Applicable Instructions: Vaginal Bleeding During , First Trimester Referrals: Marc Jeffries MD [Physician] - Forms: ED Department Discharge Additional Instructions: Strenuous activity or lifting or jarring activities, follow-up with Dr. Jeffries on Thursday for repeat beta-hCG, if there is worsening of your symptoms or bleeding over the weekend then return to the ER Sepsis Event Note - Evaluation Sepsis Screening Result: No Definite Risk - Focused Exam Vital Signs: Vital Signs Temp Pulse Resp BP Pulse Ox 08/20/19 01:16 97.7 F 123 H 15 138/92 H 100 Date Exam was Performed: 08/20/19 Time Exam was Performed: 03:48 - My Orders Last 24 Hours: My Active Orders 08/20/19 01:33 OB Transvaginal [US] Stat - Assessment/Plan Last 24 Hours: My Active Orders 08/20/19 01:33 OB Transvaginal [US] Stat
--- NOTE | 2019-08-20 13:47 | US ---
First trimester obstetrical ultrasound: Multiple real-time images were obtained obtained transvaginally. Comparison: Previous study of 08/05/19. Findings: Small cystic area is noted within the endometrial cavity. This small area has not changed significantly from previous exam. Findings most likely representing nonviable . Repeat study in one week could be obtained to confirm if patient does not miscarry in the interim. No free fluid is seen. Impression: 1. Probable nonviable as described above. Diagnostic code #3 This report was dictated in [place] Standard Time I agree with preliminary report from [facility], finalized on 08/20/19, 4:32 AM Central Time
== END 2019-08-20 04:04 | disposition home or self-care (01) ==
LOC: JD.ED 01:10
DX: O20.9 Hemorrhage in early pregnancy, unspecified (principal); O99.331 Smoking (tobacco) complicating pregnancy, first trimester; F17.210 Nicotine dependence, cigarettes, uncomplicated; Z88.2 Allergy status to sulfonamides; Z88.1 Allergy status to other antibiotic agents; Z3A.01 Less than 8 weeks gestation of pregnancy
CPT/HCPCS: 36415; 76817; 76817-26; 81001; 84702; 85025; 99282; 99284-25

== ENCOUNTER 2019-09-26 02:27 | Emergency (ER) | payer MEDICAID ==
--- NOTE | 2019-09-26 04:35 | EDM.PDOC ---
ED HPI GENERAL MEDICAL PROBLEM - General Chief Complaint: Skin Complaint Stated Complaint: BUMP ON HEAD Time Seen by Provider: 09/26/19 04:11 Source of Information: Reports: Patient History Limitations: Reports: Uncooperative (Suspicious of questions asked) - History of Present Illness INITIAL COMMENTS - FREE TEXT/NARRATIVE: Ms. 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 She did not try to treat it in any way, such as with soap and water, alcohol, or benzoyl peroxide, however, she decided to pop the pimple tonight, which produced some pus. She subsequently rubbed it with rubbing alcohol. She presents to the ED expressing concern that the pimple is not simply a pimple, but that it is the visible part of something that is much worse, and responsible for the headache that she has been feeling in the back left of her head for the past 2 weeks. She also reports sinus congestion for 2 weeks. The patient also reports poor dentition with a possible dental abscess. She states that she was evaluated by an oral surgeon, who intended to perform surgery, but that the surgery was canceled due to the patient having anemia. She has no follow-up appointment in that regard. The patient also relates that she suffered a miscarriage about 1 month ago. She states that she has had nausea, and is chronically constipated, although denies recent fever, vomiting, diarrhea, or urinary symptoms. The patient states that she drove herself here. Here in the ED, the patient's blood pressure is found to be mildly elevated, with tachycardia at 114 bpm, afebrile, saturating 100% on room air. She appears to be quite anxious. She is repeating the looking at the pimple on her forehead in a makeup mirror. The patient does not have a PCP. Her certified phlebotomy technician is Dr. Owen Patrick. Her pain marketing finance manager is "Dr. Otto" in [place]. She received an influenza vaccine this season. 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 (x 2), Therapeutic (x 1) : 5 Para: 2 Psychiatric History: Reports: ADHD (untreated), Addiction (opioids, methamphetamine) - Infectious Disease History Infectious Disease History: Reports: Herpes - Past Surgical History Female Surgical History: Reports: D&C (x 1) Social & Family History - Family History Family Medical History: Noncontributory - Tobacco Use Smoking Status *Q: Current Every Day Smoker Years of Tobacco use: 21 Packs/Tins Daily: 1 Packs/Tins Daily Comment: Down from 1.5 ppd - Caffeine Use Caffeine Use: Reports: None - Alcohol Use Alcohol Use History: No - Recreational Drug Use Recreational Drug Use: Yes Drug Use in Last 12 Months: Yes Recreational Drug Type: Reports: Marijuana/Hashish (smokes on occasion), Methamphetamine (last snorted, smoked, injected mid-Aug 2019), Other (see below ) (Illicit Vicodin -> illicit methadone -> Rx Subtex -> Rx Suboxone) - Living Situation & Occupation Living situation: Reports: Single, with Family (2 kids) Occupation: Unemployed ED ROS GENERAL - Review of Systems Review Of Systems: Comprehensive ROS is negative, except as noted in HPI. ED EXAM, SKIN/RASH Exam: See Below Exam Limited By: No Limitations General Appearance: Alert, Anxious (near-tearful, tremulous), Thin Eye Exam: Bilateral Eye: EOMI, Normal Inspection Ears: Normal External Exam, Hearing Grossly Normal Nose: Normal Inspection Throat/Mouth: Normal Inspection, Normal Lips, Normal Voice, No Airway Compromise Head: Atraumatic, Other (Single acne lesion on the left forehead with mild surrounding swelling and erythema) Neck: Normal Inspection, Full Range of Motion Respiratory/Chest: No Respiratory Distress, Lungs Clear, Normal Breath Sounds, No Accessory Muscle Use Cardiovascular: Normal Peripheral Pulses, No Edema, No Gallop, No JVD, No Murmur , No Rub, Tachycardia (regular) Peripheral Pulses: 4+: Radial (L), Radial (R) GI/Abdominal: Normal Bowel Sounds, Soft, Non-Tender, No Organomegaly, No Distention, No Abnormal Bruit, No Mass (Female) Exam: Deferred Rectal (Female) Exam: Deferred Back Exam: Normal Inspection, Full Range of Motion, NT Extremities: Normal Inspection, Normal Range of Motion, No Pedal Edema, Normal Capillary Refill Neurological: Alert, No Motor/Sensory Deficits, Other (Impaired insight and judgment) Psychiatric: Anxious Skin: Warm, Dry, Intact, Normal Color, No Rash Course - Vital Signs Last Recorded V/S: Last Vital Signs Temp 36.6 C 09/26/19 02:41 Pulse 114 H 09/26/19 02:41 Resp 18 09/26/19 02:41 BP 148/91 H 09/26/19 02:41 Pulse Ox 100 09/26/19 02:41 - Re-Assessments/Exams Free Text/Narrative Re-Assessment/Exam: 09/26/19 04:30 I am concerned about the patient's mental state. The patient literally has a pimple on her left forehead, however, she is convinced that it is something much more severe than that, and will not listen to reason. Her insight and judgment are clearly altered. The patient acknowledged snorting, smoking, and injecting methamphetamine, but states that it was 2 weeks ago. Given the patient's history of illicit drug use, however, I am concerned that there may be something else going on that is causing her to not be thinking straight. I asked the patient how she got here, and she stated that she drove herself. I asked if there was anyone that might be able to come and pick her up, which appears to have offended her, because she then collected her belongings, got up , and left the ED, without waiting for discharge instructions. Departure - Departure Time of Disposition: 04:35 Disposition: Eloped 07 Condition: Good Clinical Impression: Methamphetamine abuse - Discharge Information *PRESCRIPTION DRUG MONITORING PROGRAM REVIEWED*: Not Applicable *COPY OF PRESCRIPTION DRUG MONITORING REPORT IN PATIENT EMILEE: Not Applicable Instructions: Stimulant Use Disorder-Methamphetamines Referrals: Owen Patrick MD [Physician] - Forms: ED Department Discharge Sepsis Event Note - Evaluation Sepsis Screening Result: No Definite Risk - Focused Exam Date Exam was Performed: 09/27/19 Time Exam was Performed: 06:04
== END 2019-09-26 04:15 | disposition left against medical advice (07) ==
LOC: JD.ED 02:27
CPT/HCPCS: 99282

== ENCOUNTER 2019-09-27 07:14 | Emergency (ER) | payer MEDICAID ==
[2019-09-27] MEDS ORDERED: cefTRIAXone 1 GM in Sodium Chloride 0.9% 100 ML IV ONE (07:40)
[2019-09-27] MEDS ORDERED: Sodium Chloride 0.9% 10 ML Syringe FLUSH PRN (07:40)
[2019-09-27] MEDS ORDERED: Doxycycline 100 MG Cap PO ONE (07:42)
--- NOTE | 2019-09-27 07:45 | EDM.PDOC ---
ED HPI GENERAL MEDICAL PROBLEM - General Chief Complaint: ENT Problem Stated Complaint: L EYE SWOLLEN Time Seen by Provider: 09/27/19 07:40 Source of Information: Reports: Patient History Limitations: Reports: No Limitations - History of Present Illness INITIAL COMMENTS - FREE TEXT/NARRATIVE: 29-year-old female presents the ED for reevaluation of a swollen painful red area lateral superior to her left eye. She states this started approximately 3 days ago. It became swollen and inflamed and tender to touch. This subsequently be opened by and likely scratched and has been oozing a serous material. The last 48 hours she is developed increased periorbital swelling particularly inferior lower eyelid and also slightly of her left upper light eyelid which is causing some blurred vision. Associated mild throbbing pain in this area. Denies any other problems. She has been seen both here in the ED we hours of Thursday a.m. for September 25. She did not receive any medication for this. She did go to the walk-in clinic yesterday and was started on both Augmentin 8 7 5 mg / 125 mg twice daily and clindamycin 300 mg 3 times daily. Ends the ED this morning as the swelling is worse. I.e. the antibiotics have not had time to become effectual. This is also very dangerous combination of antibiotics and likely to precipitate antibiotic and his colitis. Does have associated mild headache due to the position of the lesion close to her temporal artery and vein. She does not feel ill otherwise i.e. no systemic signs of illness. Onset: Gradual Onset Date: 09/24/19 Duration: Day(s):, Getting Worse Location: Reports: Face (Infected small sebaceous cyst superior and lateral to her left eye that has become secondarily infected. Infection has now spread by way of gravity to involve both the upper and lower eyelids of the left eye. Left lower eyelid is particularly swollen she has a primary skin lesion superior and lateral to her left eye I temporal scalp. This appears to be a infected cyst small sebaceous cyst. Is slightly erythematous and tender to palpation.) Quality: Reports: Ache Severity: Moderate Improves with: Reports: None Worsens with: Reports: Other Context: Reports: Other (Continuous occurrence). 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, Other (see below) (Started on both clindamycin 300 mg 3 times daily and Augmentin 825/125 mg tablets yesterday in the walk-in clinic) Left Eye Pain Score (Numeric/FACES): 7 - Related Data Allergies Allergy/AdvReac Type Severity Reaction Status Date / Time sulfamethoxazole AdvReac Vomiting Verified 09/27/19 07:28 [From Bactrim] trimethoprim [From Bactrim] AdvReac Vomiting Verified 09/27/19 07:28 Home Meds: Home Meds Buprenorphine [Subutex] 16 mg SL DAILY 03/22/19 [History] Doxycycline [Vibramycin] 100 mg PO BID #20 cap 09/27/19 [Rx] Past Medical History HEENT History: Reports: Other (See Below) (Poor dentition) Other HEENT History: Dental Caries Cardiovascular History: Reports: None Respiratory History: Reports: None Gastrointestinal History: Reports: None 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 , 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 Musculoskeletal History: Reports: None Neurological History: Reports: None Psychiatric History: Reports: ADHD, Addiction Endocrine/Metabolic History: Reports: None Hematologic History: Reports: None Immunologic History: Reports: None Oncologic (Cancer) History: Reports: None Dermatologic History: Reports: None Other Dermatologic History: Bump in groin area "swollen lymph nodes." - Infectious Disease History Infectious Disease History: Reports: Herpes - Past Surgical History Head Surgeries/Procedures: Reports: None Female Surgical History: Reports: D&C Social & Family History - Family History Family Medical History: Noncontributory - Tobacco Use Smoking Status *Q: Current Every Day Smoker Years of Tobacco use: 10 Packs/Tins Daily: 1 - Caffeine Use Caffeine Use: Reports: None - Recreational Drug Use Recreational Drug Use: Yes Recreational Drug Type: Reports: Methamphetamine - Living Situation & Occupation Living situation: Reports: Single, with Family (2 kids) Occupation: Unemployed ED ROS GENERAL - Review of Systems Review Of Systems: See Below Constitutional: Denies: Fever, Chills, Malaise, Weakness, Fatigue, Decreased Appetite, Weight Loss HEENT: Reports: Other (Periorbital swelling left eye both upper and lower eyelid. The lower eyelid is more swollen than the upper. Not erythematous to suggest a periorbital cellulitis.) Respiratory: Reports: No Symptoms Cardiovascular: Reports: No Symptoms Endocrine: Reports: No Symptoms GI/Abdominal: Reports: No Symptoms : Reports: No Symptoms Musculoskeletal: Reports: No Symptoms Skin: Reports: No Symptoms Neurological: Reports: No Symptoms Psychiatric: Reports: No Symptoms Hematologic/Lymphatic: Reports: No Symptoms Immunologic: Reports: No Symptoms ED EXAM, SKIN/RASH Exam: See Below Exam Limited By: No Limitations General Appearance: Alert, WD/WN, Anxious (Weight anxious.), Mild Distress, Other (Patient does have swelling of both her upper and lower left eyelids left more so than the upper. The original infected lesion is a infected sebaceous cyst approximately 1.5 cm in diameter superior lateral to the left eyebrow. It is very near the temporal aspect of the scalp.) Eye Exam: Bilateral Eye: Periorbital Changes (Patient has an infected skin lesion superior and lateral to her left eyebrow with secondary spread of the infection to the soft tissues of the upper and lower eyelid on the left side. The eyelids themselves are not erythematous but are swollen and edematous.), PERRL Throat/Mouth: Normal Inspection, Normal Lips, Normal Oropharynx Head: Other (Patient is a primarily infected skin lesion most likely a small infected sebaceous cyst superior and lateral to her left eyebrow. It measures approximately 1.5 cm in diameter and is erythematous on the surface as if it has been picked. She indicates that is been oozing a serous material) Neck: Normal Inspection ( purulent material at times), Supple, Non-Tender, Full Range of Motion. No: Lymphadenopathy (L), Lymphadenopathy (R) Respiratory/Chest: No Respiratory Distress, Lungs Clear, Normal Breath Sounds, No Accessory Muscle Use, Chest Non-Tender Cardiovascular: Normal Peripheral Pulses, Regular Rate, Rhythm, No Edema, No Gallop, No Rub Peripheral Pulses: 3+: Posterior Tibial (L), Posterior Tibial (R), Dorsalis Pedis (L), Dorsalis Pedis (R) Neurological: Alert, Oriented, CN II-XII Intact, Normal Cognition, Normal Gait Psychiatric: Normal Affect, Normal Mood Skin: Warm, Dry, Erythema (Infected skin lesion superior lateral to the left eyebrow. Measures 1.5 cm in diameter. It is erythematous in the center of the lesion where it has been picked. It has been recently bleeding.), Increased Warmth, Other (Moderately tender) Location, Skin: Head (Scalp lateral and superior to the left eyebrow.) Characteristics: Maculopapular Associated features: Warmth, Tenderness, Swelling, Induration Course - Vital Signs Last Recorded V/S: Last Vital Signs Temp 36.1 C 09/27/19 07:25 Pulse 100 09/27/19 07:25 Resp 16 09/27/19 07:25 BP 132/80 09/27/19 07:25 Pulse Ox 100 09/27/19 07:25 - Orders/Labs/Meds Orders: Active Orders 24 hr Category Date Time Status Peripheral IV Care [RC] . DIRECTED Care 09/27/19 07:40 Active Ketorolac [Toradol] Med 09/27/19 08:00 Active 30 mg IVPUSH ONETIME Sodium Chloride 0.9% [Saline Flush] Med 09/27/19 07:40 Active 10 ml FLUSH ASDIRECTED PRN Peripheral IV Insertion Adult [OM.PC] Stat Oth 09/27/19 07:40 Ordered Medication Orders Ketorolac Tromethamine (Toradol) 30 mg IVPUSH ONETIME ZEINAB Last Admin: 09/27/19 08:35 Dose: 30 mg Sodium Chloride (Saline Flush) 10 ml FLUSH ASDIRECTED PRN PRN Reason: Keep Vein Open Last Admin: 09/27/19 08:37 Dose: 10 ml Meds: Medications Generic Name Dose Route Start Last Admin Trade Name Freq PRN Reason Stop Dose Admin Ketorolac Tromethamine 30 mg 09/27/19 08:00 09/27/19 08:35 Toradol IVPUSH 30 mg ONETIME ZEINAB Administration Sodium Chloride 10 ml 09/27/19 07:40 09/27/19 08:37 Saline Flush FLUSH 10 ml ASDIRECTED PRN Administration Keep Vein Open Discontinued Medications Generic Name Dose Route Start Last Admin Trade Name Freq PRN Reason Stop Dose Admin Doxycycline Hyclate 100 mg 09/27/19 07:42 09/27/19 08:36 Vibramycin PO 09/27/19 07:43 100 mg ONETIME ONE Administration Ceftriaxone Sodium 1 gm/ 100 mls @ 200 mls/hr 09/27/19 07:40 09/27/19 08:35 Sodium Chloride IV 09/27/19 08:09 200 mls/hr ONETIME ONE Administration - Radiology Interpretation Free Text/Narrative:: 29-year-old female presents to the ED with a painful cyst swollen slightly red area lateral and superior to her left eyebrow for the last 2-1/2 to 3 days. Appears to have been squeezing the area. It is erythematous and she indicates that she did get some serosanguineous material out of it. Over the last 2 days she is developed increased swelling periorbitally involving both the upper and lower eyelids on the left side. They are not erythematous but are swollen with edema. She has moderate amount of pain at the site of the lesion. This is because it is very close to the superficial temporal nerve artery and vein. Plan IV Rocephin 1 g. She will be given doxycycline 100 mg twice daily for the next 10 days. Initial dose will be 2 tablets of doxycycline with food. She is on both Augmentin and clindamycin at this time. The clindamycin will be continued at 300 mg 3 times daily for 1 week the Augmentin is to be discontinued. Otherwise she is at very high risk of developing antibiotic induced colitis. - Re-Assessments/Exams Free Text/Narrative Re-Assessment/Exam: 09/27/19 09:21 patient reports that she is feeling much improved. Less pain at this point in time. Departure - Departure Time of Disposition: 09:18 Disposition: Home, Self-Care 01 Condition: Fair Clinical Impression: Infected sebaceous cyst of skin, Cellulitis, face - Discharge Information *PRESCRIPTION DRUG MONITORING PROGRAM REVIEWED*: Not Applicable *COPY OF PRESCRIPTION DRUG MONITORING REPORT IN PATIENT EMILEE: Not Applicable Prescriptions: Doxycycline [Vibramycin] 100 mg PO BID #20 cap Instructions: Cellulitis, Adult, Epidermal Cyst, [id number] Referrals: Nora Hernandez PA-C [Primary Care Provider] - Forms: ED Department Discharge Additional Instructions: Evaluation the emergency room today in regards to an infected sebaceous cyst superior and lateral to your left eyebrow. Sebaceous cyst is a small gland under the skin that secretes oil for the skin and can become secondarily infected. Secondary infection is developed in this wound and it spreading to around your left eye involving both upper and lower eyelids secondary to gravity. He was started on antibiotics yesterday but they have not had time to become effective. Also it is a rather dangerous combination in terms of high likelihood of causing significant diarrhea. Just discontinuing the Augmentin. Continue clindamycin 300 mg 3 times daily for 7 days and new medication will be doxycycline 100 mg twice daily for the next 10 days to clear up infection. You were given a dose of antibiotic intravenously in the ED called Rocephin which will start to work in a couple of hours. Also Toradol 30 mg IV for pain relief. 10 you Motrin 600 mg every 6 hours as needed for pain relief. Expect marked improvement in soft tissue swelling and pain over the next 48 to 72 hours. Sepsis Event Note - Evaluation Sepsis Screening Result: No Definite Risk - Focused Exam Vital Signs: Vital Signs Temp Pulse Resp BP Pulse Ox 09/27/19 07:25 36.1 C 100 16 132/80 100 Date Exam was Performed: 09/27/19 Time Exam was Performed: 09:21 - My Orders Last 24 Hours: My Active Orders 09/27/19 07:40 Peripheral IV Care [RC] . DIRECTED Sodium Chloride 0.9% [Saline Flush] 10 ml FLUSH ASDIRECTED PRN Peripheral IV Insertion Adult [OM.PC] Stat 09/27/19 08:00 Ketorolac [Toradol] 30 mg IVPUSH ONETIME - Assessment/Plan Last 24 Hours: My Active Orders 09/27/19 07:40 Peripheral IV Care [RC] . DIRECTED Sodium Chloride 0.9% [Saline Flush] 10 ml FLUSH ASDIRECTED PRN Peripheral IV Insertion Adult [OM.PC] Stat 09/27/19 08:00 Ketorolac [Toradol] 30 mg IVPUSH ONETIME
[2019-09-27] MEDS ORDERED: Ketorolac 30 MG/ML SDV IVPUSH SCH (08:00)
== END 2019-09-27 09:38 | disposition home or self-care (01) ==
LOC: JD.ED 07:14
DX: L03.211 Cellulitis of face (principal); L72.3 Sebaceous cyst; F17.210 Nicotine dependence, cigarettes, uncomplicated; Z88.2 Allergy status to sulfonamides
CPT/HCPCS: 99283; A9270; J0696; J1885; J7050

== ENCOUNTER 2020-02-06 11:24 | Emergency (ER) | payer MEDICAID ==
[2020-02-06] MEDS ORDERED: predniSONE 20 MG Tab PO ONE (11:53)
[2020-02-06] MEDS ORDERED: Orphenadrine 100 MG Tab.ER PO ONE (11:54)
--- NOTE | 2020-02-06 12:00 | EDM.PDOC ---
ED HPI GENERAL MEDICAL PROBLEM - General Chief Complaint: Upper Extremity Injury/Pain Stated Complaint: NUMBNESS IN ARMS Time Seen by Provider: 02/06/20 11:40 Source of Information: Reports: Patient, Old Records, RN Notes Reviewed History Limitations: Reports: No Limitations - History of Present Illness INITIAL COMMENTS - FREE TEXT/NARRATIVE: Patient is a 29-year-old female who presents to the ED for her right arm numbness. Patient states that she woke up this morning, and the pain/numbness was just there. She denies any trauma to the area no recent injuries. Patient states that it is very sharp, there constantly, she is not found anything that really makes it better or worsens it. Patient states it does hurt also, when she makes a gripping motion in her hands, tries to use her hand much at all. Patient also states that lifting objects makes it worse. She did take 500 mg Tylenol 600 mg ibuprofen roughly 1-1/2 hours prior to arrival to the ER. She notes that she woke up roughly 2 hours ago. Patient is right-hand dominant. Patient notes that this did happen earlier this week as well, but it was not as painful. She states that the pain seems to radiate into her neck and upper chest as well. Patient states that she is a smoker, does not use alcohol, denies drugs, but she does take Suboxone. She further denies any fever/chills, cough/shortness of breath, chest pain, nausea/vomiting/diarrhea. Right Arm Pain Score (Numeric/FACES): 7 - Related Data Allergies Allergy/AdvReac Type Severity Reaction Status Date / Time sulfamethoxazole AdvReac Vomiting Verified 02/06/20 11:33 [From Bactrim] trimethoprim [From Bactrim] AdvReac Vomiting Verified 02/06/20 11:33 Home Meds: Home Meds Buprenorphine HCl/Naloxone HCl [Suboxone 4 mg-1 mg Sl Film] 1 dose PO ASDIRECTED 02/06/20 [History] Orphenadrine [Norflex] 100 mg PO BID PRN #20 tab 02/06/20 [Rx] predniSONE 20 mg PO ASDIRECTED #15 tab 02/06/20 [Rx] Past Medical History HEENT History: Reports: Other (See Below) Other HEENT History: Dental Caries 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 , 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 Psychiatric History: Reports: ADHD, Addiction - Infectious Disease History Infectious Disease History: Reports: Herpes - Past Surgical History HEENT Surgical History: Reports: Oral Surgery, Other (See Below) Other HEENT Surgeries/Procedures: "surgery to remove all my teeth" Female Surgical History: Reports: D&C Social & Family History - Family History Family Medical History: Noncontributory - Tobacco Use Smoking Status *Q: Current Every Day Smoker Years of Tobacco use: 15 Packs/Tins Daily: 1 - Caffeine Use Caffeine Use: Reports: None - Recreational Drug Use Recreational Drug Use: No - Living Situation & Occupation Living situation: Reports: Single, with Family (2 kids) Occupation: Unemployed Review of Systems - Review of Systems Review Of Systems: Comprehensive ROS is negative, except as noted in HPI. ED EXAM, GENERAL - Physical Exam Exam: See Below Exam Limited By: No Limitations General Appearance: Alert, WD/WN, No Apparent Distress, Anxious (pt does appear anxious ) Ears: Normal External Exam Nose: Normal Inspection Head: Atraumatic, Normocephalic Neck: Normal Inspection, Supple, Tender Lateral (there is some muscle tightness to the R posterior neck that radiates down the R arm) Respiratory/Chest: No Respiratory Distress, Lungs Clear, Normal Breath Sounds, No Accessory Muscle Use, Chest Non-Tender Cardiovascular: Normal Peripheral Pulses, Regular Rate, Rhythm, No Murmur GI/Abdominal: Normal Bowel Sounds, Soft, Non-Tender, No Distention, No Mass Extremities: Normal Inspection, Normal Capillary Refill, Limited Range of Motion (slight limit d/t pain) Neurological: Alert, Oriented, CN II-XII Intact (grossly), Normal Cognition, No Motor/Sensory Deficits Psychiatric: Normal Affect, Normal Mood Skin Exam: Warm, Dry, Intact, Normal Color, No Rash Course - Vital Signs Last Recorded V/S: Last Vital Signs Temp 98.6 F 02/06/20 11:46 Pulse 140 H 02/06/20 11:46 Resp 20 02/06/20 11:46 BP 156/104 H 02/06/20 11:46 Pulse Ox 100 02/06/20 11:46 - Orders/Labs/Meds Orders: Active Orders 24 hr Category Date Time Status CBC WITH AUTO DIFF [HEME] Stat Lab 02/06/20 11:55 Ordered CMP [COMPREHENSIVE METABOLIC PN,CMP] [CHEM] Stat Lab 02/06/20 11:55 Ordered Meds: Medications Discontinued Medications Generic Name Dose Route Start Last Admin Trade Name Belkys PRN Reason Stop Dose Admin Orphenadrine Citrate 100 mg 02/06/20 11:54 02/06/20 12:25 Norflex PO 02/06/20 11:55 100 mg ONETIME ONE Administration Prednisone 40 mg 02/06/20 11:53 02/06/20 12:25 Prednisone PO 02/06/20 11:54 40 mg ONETIME ONE Administration - Re-Assessments/Exams Free Text/Narrative Re-Assessment/Exam: 02/06/20 12:03 Patient presents to the ED for evaluation of her right upper arm pain/numbness. Will get CBC and CMP due to rule out any sort of electrolyte abnormalities. She will be given 40 mg of prednisone and 100 mg norflex for initial management. 02/06/20 12:31 Patient is refusing labs at this time, she states she is feeling better from the medications and would like to go home. I did explain that the labs were to check for electrolyte abnormalities as this can cause some muscular weakness/other issues. She is still refusing labs and would like to go home. Will discharge home at this time. Departure - Departure Time of Disposition: 12:31 Disposition: Home, Self-Care 01 Condition: Good Clinical Impression: Right arm pain, Muscle spasm - Discharge Information *PRESCRIPTION DRUG MONITORING PROGRAM REVIEWED*: No *COPY OF PRESCRIPTION DRUG MONITORING REPORT IN PATIENT EMILEE: No Instructions: Muscle Cramps and Spasms, [id number] Referrals: Nora Hernandez PA-C [Primary Care Provider] - Forms: ED Department Discharge Additional Instructions: You were evaluated in the ER today for your right upper arm pain. You have been given a prescription for Norflex and prednisone, as this is likely originating from your neck, and causing some muscle spasms as well. You may try ice/heat to the area as well to provide further pain relief. Please return to the ER at any time if your symptoms change or worsen. Sepsis Event Note (ED) - Evaluation Sepsis Screening Result: No Definite Risk - Focused Exam Vital Signs: Vital Signs Temp Pulse Resp BP Pulse Ox 02/06/20 11:46 98.6 F 140 H 20 156/104 H 100 - My Orders Last 24 Hours: My Active Orders 02/06/20 11:55 CBC WITH AUTO DIFF [HEME] Stat CMP [COMPREHENSIVE METABOLIC PN,CMP] [CHEM] Stat - Assessment/Plan Last 24 Hours: My Active Orders 02/06/20 11:55 CBC WITH AUTO DIFF [HEME] Stat CMP [COMPREHENSIVE METABOLIC PN,CMP] [CHEM] Stat
== END 2020-02-06 12:42 | disposition home or self-care (01) ==
LOC: JD.ED 11:24
DX: M62.838 Other muscle spasm (principal); M79.601 Pain in right arm; F17.210 Nicotine dependence, cigarettes, uncomplicated; Z88.2 Allergy status to sulfonamides; Z79.899 Other long term (current) drug therapy
CPT/HCPCS: 99283; A9270; J7512